=== PATIENT | male | born 1950 | race Caucasian/White ===

== ENCOUNTER 2022-05-31 17:53 | Inpatient (IN) | payer MEDICARE, OTHER, SELFPAY ==
[2022-05-31] MEDS ORDERED: Dextrose 50% Abboject 50 ML SYRINGE SLOW IVP PRN (21:35)
[2022-05-31] MEDS ORDERED: Dextrose 5% in Water 1,000 ML IV PRN (21:35)
[2022-05-31] MEDS ORDERED: Ondansetron PF 4 MG/2 ML Vial IVP PRN (21:35)
[2022-05-31] MEDS ORDERED: HumaLOG 300 UNITS/3 ML VIAL SC PRN ×2 (21:35)
[2022-05-31] MEDS ORDERED: Ondansetron ODT 4 MG TAB PO PRN (21:35)
[2022-05-31] MEDS ORDERED: Bisacodyl 10 MG SUPP PR PRN (21:35)
[2022-05-31] MEDS ORDERED: HYDROcodone/Acetaminophen 5/325 mg Tablet PO PRN (21:35)
[2022-05-31] MEDS ORDERED: Guaifenesin DM 100-10/5 ML UDCUP PO PRN (21:35)
[2022-05-31] MEDS ORDERED: Bisacodyl 5 MG TAB PO PRN (21:35)
[2022-05-31] MEDS ORDERED: Senokot S 8.6-50 MG TAB PO PRN (21:35)
[2022-05-31] MEDS ORDERED: Acetaminophen 325 MG TAB PO PRN (21:41)
[2022-05-31] MEDS ORDERED: Acetaminophen 650 MG Suppository PR PRN (21:41)
[2022-05-31] MEDS ORDERED: Morphine 4 MG/ML VIAL SLOW IVP PRN (21:43)
[2022-05-31] MEDS ORDERED: Sodium Chloride 0.9% 1,000 ML IV SCH (21:45)
[2022-05-31 22:28] VITALS: BMI 22.3
[2022-05-31] MEDS ORDERED: Vancomycin 1.5 GRAM/300 ML BAG 1.5 GM in Premix Bag 1 BAG IVPB SCH (23:00)
[2022-05-31] MEDS ORDERED: Cefepime 2 GM in Sodium Chloride 0.9% 100 ML IVPB SCH (23:59)
[2022-06-01 07:55] VITALS: BP 117/69; TEMP 98.5
[2022-06-01] MEDS ORDERED: Heparin 5,000 UNITS/ML VIAL SC SCH (09:00)
[2022-06-01 09:22] LABS: #Eosinphils 0.3 thou/uL (0.0-0.7); #Lymphocytes 0.8 thou/uL (1.20-3.40); #Monocytes 0.8 thou/uL (0.11-0.59); #Neutrophils 8.9 thou/uL (1.40-6.50); %Basophils 0.2 % (0.0-1.0); %Eosinophils 2.3 % (0.0-10.0); %Monocytes 7.4 % (0.0-10.0); %Neutrophils 83.1 % (42.0-75.0); Hemoglobin 12.8 g/dL (14.0-18.0); Mean Corpuscular HGB CONC 34.6 g/dL (32.0-36.0); Mean Corpuscular Hemoglobin 33.5 pg (27.0-31.0); Mean Corpuscular Volume 96.8 fl (78.0-98.0); Platelet Count 231 10x3/uL (130-400); RBC Distribution Width 11.2 % (11.5-14.5); Red Blood Cell (RBC) Count 3.82 mill/uL (4.70-6.10); White Blood Cell (WBC) Count 10.7 10x3/uL (4.8-10.8)
[2022-06-01 09:24] LABS: Hemoglobin A1c 8.5 % (4.0-6.0)
[2022-06-01 09:38] LABS: ALT (SGPT) 7 U/L (8-55); AST (SGOT) 12 U/L (5-34); Albumin 3.5 g/dL (3.4-4.8); Alkaline Phosphatase 51 U/L (40-110); Anion Gap 11 mmol/L (10-20); BUN (Urea Nitrogen) 17 mg/dL (8.4-25.7); Bilirubin, Total 0.8 mg/dL (0.2-1.2); Calc. Creatinine Clearance 57 mL/min (70-130); Calcium 8.7 mg/dL (7.8-10.44); Carbon Dioxide 25 mmol/L (23-31); Chloride 102 mmol/L (98-107); Estimated GFR 63; Globulin 3.1 g/dL (2.4-3.5); Glucose 171 mg/dL (83-110); Magnesium 1.7 mg/dL (1.6-2.6); Potassium 3.9 mmol/L (3.5-5.1); Protein, Total 6.6 g/dL (5.8-8.1); Sodium 134 mmol/L (136-145)
== END 2022-06-01 09:10 | disposition left against medical advice (07) | DRG 300 ==
LOC: T4-A 17:53
PROVIDERS: ADMIT Internal Medicine; ATTEND Family Medicine
DX: E11.51 Type 2 diabetes mellitus with diabetic peripheral angiopathy without gangrene (principal); M86.172 Other acute osteomyelitis, left ankle and foot; N17.9 Acute kidney failure, unspecified; E11.69 Type 2 diabetes mellitus with other specified complication; Z20.822 Contact with and (suspected) exposure to COVID-19; Z88.0 Allergy status to penicillin; Z53.29 Procedure and treatment not carried out because of patient's decision for other reasons
CPT/HCPCS: 36415; 36416; 80053; 83036; 83735; 85025; J0692; J1644; J1815; J3370; J3490; J7050; U0003; U0005

== ENCOUNTER 2022-12-02 18:20 | Inpatient (IN) | payer OTHER ==
[2022-12-02 20:51] VITALS: BMI 21.5
[2022-12-02] MEDS ORDERED: Ondansetron ODT 4 MG TAB SL PRN (21:00)
[2022-12-02] MEDS ORDERED: Ondansetron PF 4 MG/2 ML Vial IVP PRN (21:00)
[2022-12-02] MEDS ORDERED: Acetaminophen 325 MG TAB PO PRN (21:00)
[2022-12-02] MEDS ORDERED: traZODone HCl 50 MG TAB PO PRN (23:38)
[2022-12-02] MEDS ORDERED: Glucagon 1 MG/ML KIT IM PRN (23:43)
[2022-12-02] MEDS ORDERED: Acetaminophen 650 MG Suppository PR PRN (23:43)
[2022-12-02] MEDS ORDERED: Dextrose 50% Abboject 50 ML SYRINGE SLOW IVP PRN (23:43)
[2022-12-02] MEDS ORDERED: Dextrose 5% in Water 1,000 ML IV PRN (23:43)
[2022-12-03] MEDS: Sodium Chloride 0.9% 1,000 ML IV SCH ×3 (00:35→15:23)
[2022-12-03] MEDS: HumaLOG 300 UNITS/3 ML VIAL SC PRN ×4 (00:37→20:10)
[2022-12-03] MEDS ORDERED: OLANZapine 10 MG VIAL IM SCH ×2 (01:45→20:45)
[2022-12-03] MEDS ORDERED: Sterile Water 10 ML VIAL FS SCH (01:45)
[2022-12-03] MEDS ORDERED: Cefepime 2 GM in Sodium Chloride 0.9% 100 ML IVPB SCH (06:00)
[2022-12-03] MEDS ORDERED: VANCOMYCIN 1.25 GM/250 ML BAG IVPB SCH (06:00)
[2022-12-03 06:53] LABS: #Basophils 0.1 thou/uL (0.0-0.2); #Eosinphils 0.3 thou/uL (0.0-0.7); #Monocytes 0.7 thou/uL (0.11-0.59); #Neutrophils 8.1 thou/uL (1.40-6.50); %Basophils 0.7 % (0.0-1.0); %Eosinophils 2.5 % (0.0-10.0); %Monocytes 7.3 % (0.0-10.0); %Neutrophils 82.1 % (42.0-75.0); Hemoglobin 11.2 g/dL (14.0-18.0); Mean Corpuscular HGB CONC 33.5 g/dL (32.0-36.0); Mean Corpuscular Hemoglobin 31.2 pg (27.0-31.0); Mean Platelet Volume 11.7 fL (7.4-10.4); Platelet Count 210 10x3/uL (130-400); RBC Distribution Width 11.9 % (11.5-14.5); Red Blood Cell (RBC) Count 3.59 mill/uL (4.70-6.10); White Blood Cell (WBC) Count 9.9 10x3/uL (4.8-10.8)
[2022-12-03 07:14] LABS: Anion Gap 15 mmol/L (10-20); BUN (Urea Nitrogen) 23 mg/dL (8.4-25.7); Calc. Creatinine Clearance 46 mL/min (70-130); Calcium 8.9 mg/dL (7.8-10.44); Carbon Dioxide 23 mmol/L (23-31); Chloride 102 mmol/L (98-107); Estimated GFR 51; Glucose 220 mg/dL (83-110); Potassium 3.5 mmol/L (3.5-5.1); Sodium 136 mmol/L (136-145)
[2022-12-03] MEDS: cefTRIAXone\\ROCEPHIN 1 GM in Sodium Chloride 0.9% 100 ML IVPB SCH (09:28)
[2022-12-03 10:53] LABS: Bacteria/HPF None Seen HPF (None Seen); Bilirubin Negative (Negative); Blood, Urine Negative (Negative); CAUTI Indications for Culture Dysuria,urgency,freq; Clarity Clear (Clear); Glucose, Urine (Dipstick) Greater than 1000 mg/dL (Negative); Ketone, Urine Trace mg/dL (Negative); Leukocyte Negative Leu/uL (Negative); Nitrite Negative (Negative); Protein, Urine (Dipstick) 20 mg/dL (Neg-Trace); RBC/HPF 0-3 HPF (0-3); Specific Gravity, Urine 1.027 (1.002-1.036); Squamous Epithelial 0-3 HPF (0-3); Urobilinogen Normal mg/dL (Less than 2); WBC/HPF 0-3 HPF (0-3)
[2022-12-03 10:58] LABS: Urine Culture Reflex No No
[2022-12-03] MEDS ORDERED: PROPOFOL 200 MG/20 ML VIAL ONE (11:00)
[2022-12-03] MEDS ORDERED: Lidocaine 1% PF 5 ML VIAL ONE (11:00)
[2022-12-03] MEDS ORDERED: ePHEDrine Sulfate 50 MG/10 ML VIAL ONE (11:00)
[2022-12-03] MEDS ORDERED: Ondansetron PF 4 MG/2 ML Vial ONE (11:00)
[2022-12-03] MEDS ORDERED: fentaNYL PF 100 MCG/2 ML SYRINGE ONE (11:06)
[2022-12-03] MEDS ORDERED: Acetaminophen 500 MG TAB PO SCH (11:15)
[2022-12-03] MEDS ORDERED: Ondansetron HCl/PF 4 MG/2 ML Vial IVP PRN (11:36)
[2022-12-03] MEDS ORDERED: hydrALAZINE 20 MG/ML VIAL SLOW IVP PRN (13:45)
[2022-12-03] MEDS: Heparin 5,000 UNITS/ML VIAL SC SCH ×2 (15:20→20:27)
[2022-12-03] MEDS ORDERED: Lorazepam 2 MG/ML VIAL SLOW IVP SCH (16:41)
[2022-12-03] MEDS ORDERED: Lorazepam 2 MG/ML VIAL ONE (16:45)
[2022-12-03] MEDS ORDERED: diphenhydrAMINE 50 MG/ML VIAL ONE (17:21)
[2022-12-03] MEDS ORDERED: diphenhydrAMINE 50 MG/ML VIAL IVP SCH (17:30)
[2022-12-03] MEDS ORDERED: VANCOMYCIN 1.25 GM/250 ML BAG 1.25 GM in Premix Bag 1 BAG IVPB SCH (18:00)
[2022-12-03] MEDS ORDERED: Haloperidol Lactate 5 MG/ML VIAL ONE (18:09)
[2022-12-03] MEDS ORDERED: Haloperidol Lactate 5 MG/ML VIAL IM SCH (18:30)
[2022-12-03] MEDS ORDERED: Sterile Water 10 ML VIAL FS PRN (21:15)
[2022-12-04] MEDS ORDERED: QUEtiapine 25 MG TAB PO SCH (02:00)
[2022-12-04 02:27] LABS: #Basophils 0.1 thou/uL (0.0-0.2); #Eosinphils 0.1 thou/uL (0.0-0.7); #Monocytes 0.6 thou/uL (0.11-0.59); #Neutrophils 9.2 thou/uL (1.40-6.50); %Basophils 0.5 % (0.0-1.0); %Eosinophils 0.5 % (0.0-10.0); %Lymphocytes 6.6 % (21.0-51.0); %Neutrophils 85.9 % (42.0-75.0); Hemoglobin 11.6 g/dL (14.0-18.0); Mean Corpuscular HGB CONC 34.1 g/dL (32.0-36.0); Mean Corpuscular Hemoglobin 32.1 pg (27.0-31.0); Mean Corpuscular Volume 94.2 fl (78.0-98.0); Mean Platelet Volume 11.6 fL (7.4-10.4); Platelet Count 233 10x3/uL (130-400); RBC Distribution Width 12.1 % (11.5-14.5); Red Blood Cell (RBC) Count 3.61 mill/uL (4.70-6.10); White Blood Cell (WBC) Count 10.7 10x3/uL (4.8-10.8)
[2022-12-04] MEDS ORDERED: Lorazepam 1 MG TAB PO SCH (02:30)
[2022-12-04 02:55] LABS: ALT (SGPT) 9 U/L (8-55); AST (SGOT) 35 U/L (5-34); Albumin 3.5 g/dL (3.4-4.8); Alkaline Phosphatase 68 U/L (40-110); Anion Gap 17 mmol/L (10-20); BUN (Urea Nitrogen) 24 mg/dL (8.4-25.7); Bilirubin, Total 0.6 mg/dL (0.2-1.2); Calc. Creatinine Clearance 39 mL/min (70-130); Calcium 8.9 mg/dL (7.8-10.44); Carbon Dioxide 23 mmol/L (23-31); Chloride 100 mmol/L (98-107); Estimated GFR 42; Globulin 3.4 g/dL (2.4-3.5); Glucose 331 mg/dL (83-110); Protein, Total 6.9 g/dL (5.8-8.1); Sodium 136 mmol/L (136-145)
[2022-12-04] MEDS: HumaLOG 300 UNITS/3 ML VIAL SC PRN ×2 (06:17→21:01)
[2022-12-04] MEDS: cefTRIAXone\\ROCEPHIN 1 GM in Sodium Chloride 0.9% 100 ML IVPB SCH (08:44)
[2022-12-04] MEDS: Heparin 5,000 UNITS/ML VIAL SC SCH ×3 (08:44→20:51)
[2022-12-04] MEDS: Sodium Chloride 0.9% 1,000 ML IV SCH ×2 (08:45→20:50)
[2022-12-04] MEDS ORDERED: Alogliptin 25 MG TAB PO SCH (17:30)
[2022-12-04 17:32] LABS: Vancomycin, Trough 11.4 ug/mL
[2022-12-04] MEDS: Vancomycin HCl 500 MG in Sodium Chloride 0.9% 100 ML IVPB SCH (18:48)
[2022-12-04] MEDS: QUEtiapine 25 MG TAB PO SCH (20:50)
[2022-12-04] MEDS: Acetaminophen 500 MG TAB PO PRN (20:52)
[2022-12-05] MEDS: Vancomycin HCl 500 MG in Sodium Chloride 0.9% 100 ML IVPB SCH ×2 (05:02→18:18)
[2022-12-05] MEDS: HumaLOG 300 UNITS/3 ML VIAL SC PRN (06:11)
[2022-12-05 06:17] LABS: #Basophils 0.1 thou/uL (0.0-0.2); #Eosinphils 0.3 thou/uL (0.0-0.7); #Monocytes 0.8 thou/uL (0.11-0.59); %Basophils 0.7 % (0.0-1.0); %Eosinophils 2.6 % (0.0-10.0); %Lymphocytes 9.5 % (21.0-51.0); %Monocytes 7.3 % (0.0-10.0); %Neutrophils 79.3 % (42.0-75.0); Hemoglobin 11.7 g/dL (14.0-18.0); Mean Corpuscular HGB CONC 32.6 g/dL (32.0-36.0); Mean Corpuscular Hemoglobin 31.2 pg (27.0-31.0); Mean Corpuscular Volume 95.7 fl (78.0-98.0); Mean Platelet Volume 12.2 fL (7.4-10.4); Platelet Count 238 10x3/uL (130-400); RBC Distribution Width 11.9 % (11.5-14.5); Red Blood Cell (RBC) Count 3.75 mill/uL (4.70-6.10); White Blood Cell (WBC) Count 11.3 10x3/uL (4.8-10.8)
[2022-12-05 06:33] LABS: Anion Gap 16 mmol/L (10-20); BUN (Urea Nitrogen) 24 mg/dL (8.4-25.7); Calc. Creatinine Clearance 52 mL/min (70-130); Calcium 8.8 mg/dL (7.8-10.44); Carbon Dioxide 22 mmol/L (23-31); Chloride 104 mmol/L (98-107); Estimated GFR 60; Glucose 210 mg/dL (83-110); Sodium 138 mmol/L (136-145)
[2022-12-05] MEDS: risperiDONE 0.25 MG TAB PO SCH ×2 (09:33→14:22)
[2022-12-05] MEDS: Alogliptin 25 MG TAB PO SCH (09:33)
[2022-12-05] MEDS: cefTRIAXone\\ROCEPHIN 1 GM in Sodium Chloride 0.9% 100 ML IVPB SCH (09:58)
[2022-12-05] MEDS: Sodium Chloride 0.9% 1,000 ML IV SCH ×2 (09:59→21:15)
[2022-12-05] MEDS: Heparin 5,000 UNITS/ML VIAL SC SCH ×3 (10:02→21:16)
[2022-12-05] MEDS ORDERED: SUGAMMADEX SODIUM 200 MG/2 ML VIAL ONE (12:52)
[2022-12-05] MEDS ORDERED: fentaNYL PF 100 MCG/2 ML SYRINGE ONE (12:52)
[2022-12-05] MEDS: traMADol HCl 50 MG TAB PO PRN (15:48)
[2022-12-05] MEDS: Lorazepam 2 MG/ML VIAL SLOW IVP PRN (16:05)
[2022-12-05] MEDS: QUEtiapine 25 MG TAB PO SCH (21:13)
[2022-12-05] MEDS: Acetaminophen 500 MG TAB PO PRN (21:13)
[2022-12-06 04:35] LABS: #Eosinphils 0.3 thou/uL (0.0-0.7); #Monocytes 0.5 thou/uL (0.11-0.59); #Neutrophils 5.4 thou/uL (1.40-6.50); %Basophils 0.5 % (0.0-1.0); %Eosinophils 4.4 % (0.0-10.0); %Lymphocytes 13.7 % (21.0-51.0); %Neutrophils 73.9 % (42.0-75.0); Hemoglobin 10.4 g/dL (14.0-18.0); Mean Corpuscular HGB CONC 32.5 g/dL (32.0-36.0); Mean Corpuscular Volume 95.5 fl (78.0-98.0); Mean Platelet Volume 12.1 fL (7.4-10.4); Platelet Count 209 10x3/uL (130-400); RBC Distribution Width 12.3 % (11.5-14.5); Red Blood Cell (RBC) Count 3.35 mill/uL (4.70-6.10); White Blood Cell (WBC) Count 7.3 10x3/uL (4.8-10.8)
[2022-12-06 05:00] LABS: Anion Gap 15 mmol/L (10-20); BUN (Urea Nitrogen) 21 mg/dL (8.4-25.7); Calc. Creatinine Clearance 64 mL/min (70-130); Calcium 8.1 mg/dL (7.8-10.44); Carbon Dioxide 18 mmol/L (23-31); Chloride 107 mmol/L (98-107); Estimated GFR 75; Glucose 213 mg/dL (83-110); Potassium 3.7 mmol/L (3.5-5.1); Sodium 136 mmol/L (136-145)
[2022-12-06 05:38] LABS: Vancomycin, Trough 11.2 ug/mL
[2022-12-06] MEDS: Vancomycin 1 GM in Premix Bag 1 BAG IVPB SCH ×2 (06:03→17:55)
[2022-12-06] MEDS: Sodium Chloride 0.9% 1,000 ML IV SCH (06:03)
[2022-12-06] MEDS: Alogliptin 25 MG TAB PO SCH (09:12)
[2022-12-06] MEDS: cefTRIAXone\\ROCEPHIN 1 GM in Sodium Chloride 0.9% 100 ML IVPB SCH (09:20)
[2022-12-06] MEDS: Heparin 5,000 UNITS/ML VIAL SC SCH ×3 (09:21→19:49)
[2022-12-06] MEDS: risperiDONE 0.25 MG TAB PO SCH (09:23)
[2022-12-06] MEDS ORDERED: QUEtiapine 25 MG TAB PO SCH (14:19)
[2022-12-06] MEDS: Acetaminophen 500 MG TAB PO PRN (19:49)
[2022-12-06] MEDS: Lorazepam 2 MG/ML VIAL SLOW IVP PRN (21:17)
[2022-12-07] MEDS: Sodium Chloride 0.9% 1,000 ML IV SCH ×2 (00:13→17:22)
[2022-12-07] MEDS ORDERED: Haloperidol Lactate 5 MG/ML VIAL IM SCH (00:15)
[2022-12-07] MEDS ORDERED: QUEtiapine 25 MG TAB PO SCH ×4 (00:15→21:00)
[2022-12-07] MEDS: Vancomycin 1 GM in Premix Bag 1 BAG IVPB SCH ×2 (05:47→17:23)
[2022-12-07] MEDS: Alogliptin 25 MG TAB PO SCH (09:24)
[2022-12-07] MEDS: Heparin 5,000 UNITS/ML VIAL SC SCH ×2 (09:28→15:21)
[2022-12-07] MEDS: cefTRIAXone\\ROCEPHIN 1 GM in Sodium Chloride 0.9% 100 ML IVPB SCH (09:28)
[2022-12-07 16:18] LABS: CKMB 7.1 ng/mL (0-6.6)
[2022-12-07] MEDS ORDERED: Sodium Bicarbonate Tab 325 MG TAB PO SCH (16:45)
[2022-12-07 17:49] LABS: Vancomycin, Trough 18.8 ug/mL
[2022-12-07] MEDS: HumaLOG 300 UNITS/3 ML VIAL SC PRN (18:23)
[2022-12-07 19:16] LABS: CKMB 11.6 ng/mL (0-6.6)
[2022-12-07] MEDS: Lorazepam 2 MG/ML VIAL SLOW IVP PRN (19:35)
[2022-12-07 19:46] LABS: Critical Call Chem Troponin I DECREASE; Troponin I 7.873 ng/mL (< 0.028)
[2022-12-07] MEDS: Acetaminophen 500 MG TAB PO PRN (20:18)
[2022-12-07] MEDS: Sodium Bicarbonate Tab 325 MG TAB PO SCH (20:18)
[2022-12-08 04:10] LABS: #Basophils 0.1 thou/uL (0.0-0.2); #Eosinphils 0.1 thou/uL (0.0-0.7); #Monocytes 0.7 thou/uL (0.11-0.59); #Neutrophils 8.1 thou/uL (1.40-6.50); %Basophils 0.7 % (0.0-1.0); %Eosinophils 1.1 % (0.0-10.0); %Lymphocytes 9.2 % (21.0-51.0); %Monocytes 7.1 % (0.0-10.0); %Neutrophils 81.2 % (42.0-75.0); Hemoglobin 11.2 g/dL (14.0-18.0); Mean Corpuscular HGB CONC 32.6 g/dL (32.0-36.0); Mean Corpuscular Volume 95.3 fl (78.0-98.0); Platelet Count 263 10x3/uL (130-400); RBC Distribution Width 12.2 % (11.5-14.5); Red Blood Cell (RBC) Count 3.61 mill/uL (4.70-6.10)
[2022-12-08 04:38] LABS: Anion Gap 20 mmol/L (10-20); BUN (Urea Nitrogen) 10 mg/dL (8.4-25.7); Calc. Creatinine Clearance 62 mL/min (70-130); Calcium 8.5 mg/dL (7.8-10.44); Carbon Dioxide 18 mmol/L (23-31); Chloride 103 mmol/L (98-107); Estimated GFR 73; Glucose 201 mg/dL (83-110); Potassium 3.7 mmol/L (3.5-5.1); Sodium 137 mmol/L (136-145)
[2022-12-08] MEDS: Vancomycin HCl 750 MG in Sodium Chloride 0.9% 250 ML 250 ML IVPB SCH ×2 (05:34→17:28)
[2022-12-08] MEDS: HumaLOG 300 UNITS/3 ML VIAL SC PRN ×2 (06:22→23:20)
[2022-12-08 07:10] LABS: CKMB 7.7 ng/mL (0-6.6)
[2022-12-08 07:20] LABS: Critical Call Chem Troponin I RESULT DECREASING; Troponin I 6.543 ng/mL (< 0.028)
[2022-12-08] MEDS: Famotidine/PF 20 mg/2ml Vial SLOW IVP SCH ×2 (08:41→22:38)
[2022-12-08] MEDS: cefTRIAXone\\ROCEPHIN 1 GM in Sodium Chloride 0.9% 100 ML IVPB SCH (08:42)
[2022-12-08] MEDS: Alogliptin 25 MG TAB PO SCH (08:42)
[2022-12-08] MEDS: Sodium Bicarbonate Tab 325 MG TAB PO SCH ×3 (08:42→22:38)
[2022-12-08] MEDS: Sodium Chloride 0.9% 1,000 ML IV SCH ×2 (08:48→23:52)
[2022-12-08] MEDS ORDERED: QUEtiapine 25 MG TAB PO SCH (21:00)
[2022-12-09] MEDS: Lorazepam 2 MG/ML VIAL SLOW IVP PRN ×2 (03:45→16:01)
[2022-12-09] MEDS: Sodium Chloride 0.9% 1,000 ML IV SCH (04:52)
[2022-12-09] MEDS: Vancomycin HCl 750 MG in Sodium Chloride 0.9% 250 ML 250 ML IVPB SCH ×2 (04:52→17:58)
[2022-12-09 04:55] LABS: #Basophils 0.1 thou/uL (0.0-0.2); #Eosinphils 0.1 thou/uL (0.0-0.7); #Monocytes 0.7 thou/uL (0.11-0.59); %Basophils 0.7 % (0.0-1.0); %Eosinophils 0.9 % (0.0-10.0); %Monocytes 8.9 % (0.0-10.0); %Neutrophils 73.9 % (42.0-75.0); Hemoglobin 10.9 g/dL (14.0-18.0); Mean Corpuscular HGB CONC 33.5 g/dL (32.0-36.0); Mean Corpuscular Hemoglobin 32.3 pg (27.0-31.0); Mean Corpuscular Volume 96.4 fl (78.0-98.0); Mean Platelet Volume 12.2 fL (7.4-10.4); Platelet Count 253 10x3/uL (130-400); RBC Distribution Width 12.7 % (11.5-14.5); Red Blood Cell (RBC) Count 3.37 mill/uL (4.70-6.10); White Blood Cell (WBC) Count 8.2 10x3/uL (4.8-10.8)
[2022-12-09 05:20] LABS: Anion Gap 18 mmol/L (10-20); BUN (Urea Nitrogen) 16 mg/dL (8.4-25.7); Calc. Creatinine Clearance 56 mL/min (70-130); Calcium 8.3 mg/dL (7.8-10.44); Carbon Dioxide 18 mmol/L (23-31); Chloride 106 mmol/L (98-107); Estimated GFR 65; Glucose 233 mg/dL (83-110); Potassium 3.7 mmol/L (3.5-5.1); Sodium 138 mmol/L (136-145)
[2022-12-09] MEDS: HumaLOG 300 UNITS/3 ML VIAL SC PRN ×4 (05:45→21:18)
[2022-12-09] MEDS: Alogliptin 25 MG TAB PO SCH (08:37)
[2022-12-09] MEDS: Sodium Bicarbonate Tab 325 MG TAB PO SCH ×3 (08:38→21:18)
[2022-12-09] MEDS: cefTRIAXone\\ROCEPHIN 1 GM in Sodium Chloride 0.9% 100 ML IVPB SCH (08:38)
[2022-12-09] MEDS: Famotidine/PF 20 mg/2ml Vial SLOW IVP SCH ×2 (08:38→21:18)
[2022-12-09] MEDS ORDERED: Haloperidol Lactate 5 MG/ML VIAL IM SCH (16:45)
[2022-12-10] MEDS: Sodium Chloride 0.9% 1,000 ML IV SCH (01:00)
[2022-12-10 05:06] LABS: #Basophils 0.1 thou/uL (0.0-0.2); #Eosinphils 0.3 thou/uL (0.0-0.7); #Monocytes 0.7 thou/uL (0.11-0.59); #Neutrophils 5.6 thou/uL (1.40-6.50); %Basophils 1.3 % (0.0-1.0); %Eosinophils 3.3 % (0.0-10.0); %Lymphocytes 19.1 % (21.0-51.0); %Monocytes 7.9 % (0.0-10.0); %Neutrophils 66.5 % (42.0-75.0); Hemoglobin 11.1 g/dL (14.0-18.0); Mean Corpuscular HGB CONC 33.8 g/dL (32.0-36.0); Mean Corpuscular Hemoglobin 31.9 pg (27.0-31.0); Mean Corpuscular Volume 94.3 fl (78.0-98.0); Mean Platelet Volume 12.4 fL (7.4-10.4); Platelet Count 294 10x3/uL (130-400); RBC Distribution Width 12.8 % (11.5-14.5); Red Blood Cell (RBC) Count 3.48 mill/uL (4.70-6.10); White Blood Cell (WBC) Count 8.5 10x3/uL (4.8-10.8)
[2022-12-10 05:30] LABS: Anion Gap 18 mmol/L (10-20); BUN (Urea Nitrogen) 23 mg/dL (8.4-25.7); Calc. Creatinine Clearance 49 mL/min (70-130); Calcium 8.5 mg/dL (7.8-10.44); Carbon Dioxide 18 mmol/L (23-31); Chloride 107 mmol/L (98-107); Estimated GFR 56; Glucose 272 mg/dL (83-110); Potassium 3.7 mmol/L (3.5-5.1); Sodium 139 mmol/L (136-145)
[2022-12-10] MEDS: Vancomycin HCl 750 MG in Sodium Chloride 0.9% 250 ML 250 ML IVPB SCH ×2 (05:36→18:04)
[2022-12-10] MEDS: HumaLOG 300 UNITS/3 ML VIAL SC PRN ×3 (06:49→16:53)
[2022-12-10] MEDS: cefTRIAXone\\ROCEPHIN 1 GM in Sodium Chloride 0.9% 100 ML IVPB SCH (08:36)
[2022-12-10] MEDS: Sodium Bicarbonate Tab 325 MG TAB PO SCH ×3 (08:36→20:13)
[2022-12-10] MEDS: Famotidine/PF 20 mg/2ml Vial SLOW IVP SCH ×2 (08:36→20:13)
[2022-12-10] MEDS: Alogliptin 25 MG TAB PO SCH (08:36)
[2022-12-10] MEDS: Lorazepam 2 MG/ML VIAL SLOW IVP PRN ×2 (14:35→21:30)
[2022-12-10] MEDS: traMADol HCl 50 MG TAB PO PRN (20:13)
[2022-12-10] MEDS: Acetaminophen 500 MG TAB PO PRN (20:19)
[2022-12-11 06:25] LABS: #Basophils 0.1 thou/uL (0.0-0.2); #Eosinphils 0.4 thou/uL (0.0-0.7); #Monocytes 0.4 thou/uL (0.11-0.59); #Neutrophils 4.6 thou/uL (1.40-6.50); %Basophils 0.9 % (0.0-1.0); %Eosinophils 5.5 % (0.0-10.0); %Lymphocytes 12.2 % (21.0-51.0); %Monocytes 6.9 % (0.0-10.0); %Neutrophils 72.1 % (42.0-75.0); Hemoglobin 9.9 g/dL (14.0-18.0); Mean Corpuscular HGB CONC 33.3 g/dL (32.0-36.0); Mean Corpuscular Hemoglobin 32.1 pg (27.0-31.0); Mean Corpuscular Volume 96.4 fl (78.0-98.0); Mean Platelet Volume 11.9 fL (7.4-10.4); Platelet Count 254 10x3/uL (130-400); RBC Distribution Width 13.1 % (11.5-14.5); Red Blood Cell (RBC) Count 3.08 mill/uL (4.70-6.10); White Blood Cell (WBC) Count 6.4 10x3/uL (4.8-10.8)
[2022-12-11 06:30] LABS: Vancomycin, Trough 16.9 ug/mL
[2022-12-11 06:34] LABS: Anion Gap 11 mmol/L (10-20); BUN (Urea Nitrogen) 26 mg/dL (8.4-25.7); Calc. Creatinine Clearance 66 mL/min (70-130); Calcium 8.3 mg/dL (7.8-10.44); Carbon Dioxide 22 mmol/L (23-31); Chloride 109 mmol/L (98-107); Estimated GFR 79; Glucose 182 mg/dL (83-110); Potassium 3.3 mmol/L (3.5-5.1); Sodium 139 mmol/L (136-145)
[2022-12-11] MEDS: Vancomycin HCl 750 MG in Sodium Chloride 0.9% 250 ML 250 ML IVPB SCH ×2 (06:48→18:19)
[2022-12-11] MEDS: Alogliptin 25 MG TAB PO SCH (08:27)
[2022-12-11] MEDS: cefTRIAXone\\ROCEPHIN 1 GM in Sodium Chloride 0.9% 100 ML IVPB SCH (08:27)
[2022-12-11] MEDS: Famotidine/PF 20 mg/2ml Vial SLOW IVP SCH ×2 (08:28→21:01)
[2022-12-11] MEDS: Sodium Bicarbonate Tab 325 MG TAB PO SCH ×3 (08:28→21:07)
[2022-12-11] MEDS ORDERED: Aspirin 81 mg Enteric Coated Tablet PO SCH (09:00)
[2022-12-11] MEDS: Clopidogrel Bisulfate 75 MG TAB PO SCH (10:13)
[2022-12-11] MEDS ORDERED: Electrolyte Replacement Protocol 1 EACH FS SCH (14:30)
[2022-12-11] MEDS ORDERED: Potassium Bicarbonate/Cit Ac 20 MEQ TAB PO SCH (14:30)
[2022-12-11] MEDS: Atorvastatin Calcium 20 MG TAB PO SCH (21:07)
[2022-12-12] MEDS: Lorazepam 2 MG/ML VIAL SLOW IVP PRN ×2 (01:07→21:04)
[2022-12-12] MEDS: traMADol HCl 50 MG TAB PO PRN ×2 (01:13→20:54)
[2022-12-12] MEDS: Acetaminophen 500 MG TAB PO PRN ×2 (01:14→20:53)
[2022-12-12] MEDS: Vancomycin HCl 750 MG in Sodium Chloride 0.9% 250 ML 250 ML IVPB SCH ×2 (05:11→17:41)
[2022-12-12] MEDS: cefTRIAXone\\ROCEPHIN 1 GM in Sodium Chloride 0.9% 100 ML IVPB SCH (08:52)
[2022-12-12] MEDS: Sodium Bicarbonate Tab 325 MG TAB PO SCH ×3 (08:53→20:55)
[2022-12-12] MEDS: Alogliptin 25 MG TAB PO SCH (08:53)
[2022-12-12] MEDS: Famotidine/PF 20 mg/2ml Vial SLOW IVP SCH ×2 (08:53→20:53)
[2022-12-12] MEDS: Clopidogrel Bisulfate 75 MG TAB PO SCH (08:53)
[2022-12-12] MEDS: Atorvastatin Calcium 20 MG TAB PO SCH (20:55)
[2022-12-13] MEDS: Vancomycin HCl 750 MG in Sodium Chloride 0.9% 250 ML 250 ML IVPB SCH ×2 (05:02→17:59)
[2022-12-13] MEDS: HumaLOG 300 UNITS/3 ML VIAL SC PRN ×2 (05:02→17:59)
[2022-12-13 07:15] LABS: #Basophils 0.1 thou/uL (0.0-0.2); #Eosinphils 0.4 thou/uL (0.0-0.7); #Monocytes 0.4 thou/uL (0.11-0.59); #Neutrophils 3.4 thou/uL (1.40-6.50); %Basophils 1.2 % (0.0-1.0); %Eosinophils 7.2 % (0.0-10.0); %Lymphocytes 14.6 % (21.0-51.0); %Monocytes 7.2 % (0.0-10.0); %Neutrophils 66.7 % (42.0-75.0); Hemoglobin 10.9 g/dL (14.0-18.0); Mean Corpuscular Hemoglobin 32.4 pg (27.0-31.0); Mean Corpuscular Volume 98.2 fl (78.0-98.0); Mean Platelet Volume 11.4 fL (7.4-10.4); Platelet Count 269 10x3/uL (130-400); RBC Distribution Width 13.3 % (11.5-14.5); Red Blood Cell (RBC) Count 3.36 mill/uL (4.70-6.10); White Blood Cell (WBC) Count 5.1 10x3/uL (4.8-10.8)
[2022-12-13 07:36] LABS: ALT (SGPT) 33 U/L (8-55); AST (SGOT) 22 U/L (5-34); Albumin 2.7 g/dL (3.4-4.8); Alkaline Phosphatase 90 U/L (40-110); Anion Gap 8 mmol/L (10-20); BUN (Urea Nitrogen) 17 mg/dL (8.4-25.7); Bilirubin, Total 0.3 mg/dL (0.2-1.2); Calc. Creatinine Clearance 77 mL/min (70-130); Carbon Dioxide 26 mmol/L (23-31); Chloride 106 mmol/L (98-107); Estimated GFR 91; Globulin 2.7 g/dL (2.4-3.5); Glucose 179 mg/dL (83-110); Potassium 3.2 mmol/L (3.5-5.1); Protein, Total 5.4 g/dL (5.8-8.1); Sodium 137 mmol/L (136-145)
[2022-12-13] MEDS ORDERED: Potassium Chloride 20 MEQ TAB PO SCH (08:00)
[2022-12-13] MEDS: cefTRIAXone\\ROCEPHIN 1 GM in Sodium Chloride 0.9% 100 ML IVPB SCH (08:31)
[2022-12-13] MEDS: Famotidine/PF 20 mg/2ml Vial SLOW IVP SCH ×2 (08:32→20:33)
[2022-12-13] MEDS: Clopidogrel Bisulfate 75 MG TAB PO SCH (08:36)
[2022-12-13] MEDS: Sodium Bicarbonate Tab 325 MG TAB PO SCH ×3 (08:36→20:29)
[2022-12-13] MEDS: Alogliptin 25 MG TAB PO SCH (08:38)
[2022-12-13 09:04] LABS: Magnesium 1.6 mg/dL (1.6-2.6)
[2022-12-13] MEDS ORDERED: Magnesium 2 GM/50 ML(in water) 2 GM in Premix Bag 1 BAG IVPB SCH (09:30)
[2022-12-13] MEDS: Melatonin 3 MG TAB PO SCH (20:29)
[2022-12-13] MEDS: Atorvastatin Calcium 20 MG TAB PO SCH (20:29)
[2022-12-13] MEDS: traMADol HCl 50 MG TAB PO PRN (20:30)
[2022-12-13] MEDS: Acetaminophen 500 MG TAB PO PRN (20:31)
[2022-12-14] MEDS: Vancomycin HCl 750 MG in Sodium Chloride 0.9% 250 ML 250 ML IVPB SCH ×2 (05:22→18:08)
[2022-12-14] MEDS: Alogliptin 25 MG TAB PO SCH (08:46)
[2022-12-14] MEDS: Sodium Bicarbonate Tab 325 MG TAB PO SCH ×3 (08:46→19:53)
[2022-12-14] MEDS: Clopidogrel Bisulfate 75 MG TAB PO SCH (08:46)
[2022-12-14] MEDS: Famotidine/PF 20 mg/2ml Vial SLOW IVP SCH ×2 (08:46→20:56)
[2022-12-14 08:48] LABS: #Basophils 0.1 thou/uL (0.0-0.2); #Eosinphils 0.3 thou/uL (0.0-0.7); #Monocytes 0.5 thou/uL (0.11-0.59); #Neutrophils 6.5 thou/uL (1.40-6.50); %Basophils 0.6 % (0.0-1.0); %Eosinophils 3.8 % (0.0-10.0); %Lymphocytes 9.4 % (21.0-51.0); %Monocytes 6.3 % (0.0-10.0); %Neutrophils 78.6 % (42.0-75.0); Hemoglobin 11.6 g/dL (14.0-18.0); Mean Corpuscular HGB CONC 33.7 g/dL (32.0-36.0); Mean Corpuscular Hemoglobin 32.1 pg (27.0-31.0); Mean Corpuscular Volume 95.3 fl (78.0-98.0); Mean Platelet Volume 11.2 fL (7.4-10.4); Platelet Count 291 10x3/uL (130-400); RBC Distribution Width 13.6 % (11.5-14.5); Red Blood Cell (RBC) Count 3.61 mill/uL (4.70-6.10); White Blood Cell (WBC) Count 8.3 10x3/uL (4.8-10.8)
[2022-12-14 09:07] LABS: Anion Gap 13 mmol/L (10-20); BUN (Urea Nitrogen) 14 mg/dL (8.4-25.7); Calc. Creatinine Clearance 77 mL/min (70-130); Calcium 8.4 mg/dL (7.8-10.44); Carbon Dioxide 26 mmol/L (23-31); Chloride 106 mmol/L (98-107); Estimated GFR 91; Glucose 153 mg/dL (83-110); Potassium 3.6 mmol/L (3.5-5.1); Sodium 141 mmol/L (136-145)
[2022-12-14] MEDS: Atorvastatin Calcium 20 MG TAB PO SCH (19:53)
[2022-12-14] MEDS: Melatonin 3 MG TAB PO SCH (19:53)
[2022-12-15] MEDS: Vancomycin HCl 750 MG in Sodium Chloride 0.9% 250 ML 250 ML IVPB SCH ×2 (06:32→17:17)
[2022-12-15 07:39] LABS: #Basophils 0.1 thou/uL (0.0-0.2); #Eosinphils 0.1 thou/uL (0.0-0.7); #Monocytes 0.6 thou/uL (0.11-0.59); #Neutrophils 9.4 thou/uL (1.40-6.50); %Basophils 0.6 % (0.0-1.0); %Eosinophils 0.8 % (0.0-10.0); %Lymphocytes 8.7 % (21.0-51.0); %Monocytes 5.3 % (0.0-10.0); %Neutrophils 83.7 % (42.0-75.0); Hemoglobin 12.9 g/dL (14.0-18.0); Mean Corpuscular HGB CONC 33.2 g/dL (32.0-36.0); Mean Corpuscular Hemoglobin 32.3 pg (27.0-31.0); Mean Corpuscular Volume 97.5 fl (78.0-98.0); Platelet Count 333 10x3/uL (130-400); RBC Distribution Width 13.7 % (11.5-14.5); Red Blood Cell (RBC) Count 3.99 mill/uL (4.70-6.10); White Blood Cell (WBC) Count 11.3 10x3/uL (4.8-10.8)
[2022-12-15 08:02] LABS: Anion Gap 20 mmol/L (10-20); BUN (Urea Nitrogen) 15 mg/dL (8.4-25.7); Calc. Creatinine Clearance 61 mL/min (70-130); Carbon Dioxide 20 mmol/L (23-31); Chloride 102 mmol/L (98-107); Estimated GFR 72; Glucose 214 mg/dL (83-110); Potassium 4.1 mmol/L (3.5-5.1); Sodium 138 mmol/L (136-145)
[2022-12-15] MEDS: Sodium Bicarbonate Tab 325 MG TAB PO SCH ×3 (09:45→20:15)
[2022-12-15] MEDS: Famotidine/PF 20 mg/2ml Vial SLOW IVP SCH ×2 (09:45→20:15)
[2022-12-15] MEDS: Magnesium Oxide 400 MG TAB PO SCH (09:46)
[2022-12-15] MEDS: Alogliptin 25 MG TAB PO SCH (09:46)
[2022-12-15] MEDS: Clopidogrel Bisulfate 75 MG TAB PO SCH (09:46)
[2022-12-15] MEDS: HumaLOG 300 UNITS/3 ML VIAL SC PRN (13:11)
[2022-12-15] MEDS: Melatonin 3 MG TAB PO SCH (20:15)
[2022-12-15] MEDS: Atorvastatin Calcium 20 MG TAB PO SCH (20:15)
[2022-12-16] MEDS: HumaLOG 300 UNITS/3 ML VIAL SC PRN ×3 (05:44→21:44)
[2022-12-16 06:27] LABS: #Basophils 0.1 thou/uL (0.0-0.2); #Monocytes 0.5 thou/uL (0.11-0.59); #Neutrophils 9.3 thou/uL (1.40-6.50); %Basophils 0.9 % (0.0-1.0); %Eosinophils 0.4 % (0.0-10.0); %Lymphocytes 7.5 % (21.0-51.0); %Monocytes 4.6 % (0.0-10.0); %Neutrophils 85.8 % (42.0-75.0); Hemoglobin 12.2 g/dL (14.0-18.0); Mean Corpuscular HGB CONC 32.2 g/dL (32.0-36.0); Mean Corpuscular Hemoglobin 31.4 pg (27.0-31.0); Mean Corpuscular Volume 97.4 fl (78.0-98.0); Mean Platelet Volume 11.5 fL (7.4-10.4); Platelet Count 311 10x3/uL (130-400); Red Blood Cell (RBC) Count 3.89 mill/uL (4.70-6.10); White Blood Cell (WBC) Count 10.9 10x3/uL (4.8-10.8)
[2022-12-16 06:49] LABS: Anion Gap 18 mmol/L (10-20); BUN (Urea Nitrogen) 17 mg/dL (8.4-25.7); Calc. Creatinine Clearance 55 mL/min (70-130); Calcium 8.9 mg/dL (7.8-10.44); Carbon Dioxide 21 mmol/L (23-31); Chloride 106 mmol/L (98-107); Estimated GFR 63; Glucose 215 mg/dL (83-110); Potassium 4.4 mmol/L (3.5-5.1); Sodium 141 mmol/L (136-145); Vancomycin, Trough 16.8 ug/mL
[2022-12-16] MEDS: Sodium Bicarbonate Tab 325 MG TAB PO SCH ×3 (08:31→21:44)
[2022-12-16] MEDS: Clopidogrel Bisulfate 75 MG TAB PO SCH (08:32)
[2022-12-16] MEDS: Alogliptin 25 MG TAB PO SCH (08:32)
[2022-12-16] MEDS: Magnesium Oxide 400 MG TAB PO SCH (08:32)
[2022-12-16] MEDS: Famotidine/PF 20 mg/2ml Vial SLOW IVP SCH ×2 (08:32→21:44)
[2022-12-16] MEDS: Vancomycin HCl 750 MG in Sodium Chloride 0.9% 250 ML 250 ML IVPB SCH (11:03)
[2022-12-16] MEDS: Atorvastatin Calcium 20 MG TAB PO SCH (21:43)
[2022-12-16] MEDS: Melatonin 3 MG TAB PO SCH (21:44)
[2022-12-17] MEDS: HumaLOG 300 UNITS/3 ML VIAL SC PRN (05:23)
[2022-12-17 07:10] LABS: #Basophils 0.1 thou/uL (0.0-0.2); #Monocytes 0.6 thou/uL (0.11-0.59); %Basophils 0.8 % (0.0-1.0); %Eosinophils 0.3 % (0.0-10.0); %Lymphocytes 7.8 % (21.0-51.0); %Monocytes 5.5 % (0.0-10.0); %Neutrophils 84.7 % (42.0-75.0); Hemoglobin 12.1 g/dL (14.0-18.0); Mean Corpuscular HGB CONC 33.1 g/dL (32.0-36.0); Mean Corpuscular Hemoglobin 31.8 pg (27.0-31.0); Mean Corpuscular Volume 96.1 fl (78.0-98.0); Mean Platelet Volume 11.5 fL (7.4-10.4); Platelet Count 307 10x3/uL (130-400); RBC Distribution Width 14.1 % (11.5-14.5); Red Blood Cell (RBC) Count 3.81 mill/uL (4.70-6.10); White Blood Cell (WBC) Count 11.7 10x3/uL (4.8-10.8)
[2022-12-17 07:31] LABS: Anion Gap 14 mmol/L (10-20); BUN (Urea Nitrogen) 25 mg/dL (8.4-25.7); Calc. Creatinine Clearance 51 mL/min (70-130); Calcium 8.9 mg/dL (7.8-10.44); Carbon Dioxide 24 mmol/L (23-31); Chloride 106 mmol/L (98-107); Estimated GFR 58; Glucose 195 mg/dL (83-110); Potassium 3.8 mmol/L (3.5-5.1); Sodium 140 mmol/L (136-145)
[2022-12-17] MEDS: Alogliptin 25 MG TAB PO SCH (08:25)
[2022-12-17] MEDS: Famotidine/PF 20 mg/2ml Vial SLOW IVP SCH (08:26)
[2022-12-17] MEDS: Clopidogrel Bisulfate 75 MG TAB PO SCH (08:26)
[2022-12-17] MEDS: Magnesium Oxide 400 MG TAB PO SCH (08:26)
[2022-12-17] MEDS: Sodium Bicarbonate Tab 325 MG TAB PO SCH ×2 (08:26→14:55)
[2022-12-17 17:54] VITALS: BP 156/74; TEMP 97.3
== END 2022-12-17 18:02 | DRG 616 ==
LOC: T4-B 20:24 → CCU 12-07 15:57 → 2NO 12-08 16:58 → T4-A 12-10 17:23
PROVIDERS: ADMIT Internal Medicine; ATTEND Internal Medicine
PROC: 0Y6S0Z1 Detachment at Left 2nd Toe, High, Open Approach (ICD-10-PCS; principal; 2022-12-03)
DX: E11.69 Type 2 diabetes mellitus with other specified complication (principal); G93.41 Metabolic encephalopathy; I21.4 Non-ST elevation (NSTEMI) myocardial infarction; I50.22 Chronic systolic (congestive) heart failure; M86.172 Other acute osteomyelitis, left ankle and foot; E87.20 Acidosis, unspecified; N17.9 Acute kidney failure, unspecified; E11.621 Type 2 diabetes mellitus with foot ulcer; Z66 Do not resuscitate; L97.529 Non-pressure chronic ulcer of other part of left foot with unspecified severity; F03.90 Unspecified dementia, unspecified severity, without behavioral disturbance, psychotic disturbance, mood disturbance, and anxiety; I45.81 Long QT syndrome; R33.9 Retention of urine, unspecified; I35.0 Nonrheumatic aortic (valve) stenosis; R53.81 Other malaise; Z78.1 Physical restraint status; Z88.0 Allergy status to penicillin; Z90.49 Acquired absence of other specified parts of digestive tract; Z89.411 Acquired absence of right great toe
CPT/HCPCS: 36415; 36416; 76770; 80048; 80053; 80202; 80307; 82553; 83036; 83735; 84484; 85025; 88305; 88311; 93005; 93010; 93306; 97139; J0692; J0696; J1200; J1630; J1644; J1650; J1815; J2060; J2405; J2704; J3370; J3370-JW; J3475; J3490; J7050; S0028